=== PATIENT | male | born 1975 | race Caucasian/White ===

== ENCOUNTER 2024-06-25 21:12 | Inpatient (IN) | payer OTHER, SELFPAY ==
[2024-06-25 17:44] VITALS: BP 138/105
[2024-06-25] MEDS: DILAUDID 1 MG IV ×3 (17:48→23:58)
[2024-06-25] MEDS: NSS 500 IV ×2 (17:49→21:07)
[2024-06-25] MEDS: ZOFRAN 4 MG IV (17:52)
[2024-06-25 18:00] VITALS: BP 126/107
[2024-06-25 18:02] LABS: % Basophils 0.5 % (0-2); % Eosinophils 1.5 % (0-6); % Immature Granulocytes 0.4 % (0-0.5); % Lymphocytes 22.7 % (20.5-51.1); % Monocytes 6.3 % (1.7-9.3); % Neutrophils 68.6 % (42.2-75.2); Absolute Basophils 0.1 10^3/uL (0-0.2); Absolute Eosinophils 0.2 10^3/uL (0-0.7); Absolute Immature Granulocytes 0.1 10^3/uL (0-0.05); Absolute Lymphocytes 2.8 10^3/uL (1.2-3.4); Absolute Monocytes 0.8 10^3/uL (0.1-0.6); Absolute Neutrophils 8.5 10^3/uL (1.4-6.5); Hematocrit 43.4 % (39.0-52.0); Hemoglobin 15.5 g/dL (13.0-18.0); Mean Corp Hgb Conc. 35.7 g/dL (33.0-37.0); Mean Corpuscular Hgb 31.6 pg (27.0-31.0); Mean Corpuscular Volume 88.4 fL (80.0-94.0); Mean Platelet Volume 9.6 fL (7.4-10.4); Nucleated Red Blood Cells % 0 % (-); Platelet Count 247 10^3/uL (130-400); Red Blood Cell Count 4.91 10^6/uL (4.70-6.10); Red Cell Dist. Width 12.7 % (11.5-14.5); White Blood Cell Count 12.4 10^3/uL (4.8-10.8)
[2024-06-25 18:14] LABS: Lactic Acid 3.4 mmol/L (0.7-2.0)
[2024-06-25 18:15] LABS: ALT (SGPT) 26 U/L (0-50); AST (SGOT) 27 U/L (17-59); Albumin 4.6 g/dl (3.5-5.0); Alkaline Phosphatase 67 U/L (38-126); Blood Urea Nitrogen 17 mg/dl (9-20); Calcium 10.3 mg/dl (8.4-10.2); Carbon Dioxide 24 mmol/L (22-30); Chloride 103 mmol/L (98-107); Glucose 111 mg/dl (70-99); Lipase 120 U/L (23-300); Potassium 3.8 mmol/L (3.5-5.1); Sodium 138 mmol/L (135-145); Total Bilirubin 0.6 mg/dl (0.2-1.3); Total Protein 6.9 g/dl (6.3-8.2); eGFR > 60.00
--- NOTE | 2024-06-25 18:54 | ED.GENMED ---
History of Present Illness
General
Chief Complaint: Abdominal Pain
Source: patient
Exam Limitations: none
Time Seen by Provider: 06/25/24 17:44
Nursing documentation reviewed up to this point in time: agreed with
History of Present Illness
History of Present Illness:
49-year-old male with past medical history of hepatitis, chronic back pain who presents to the emergency room with his for evaluation of abdominal pain. Patient reports onset of symptoms this morning and they have been constant since that
time. He reports pain located in the periumbilical region. Describes a sharp pain. No relieving or triggering factors noted. He reports associated nausea and multiple episodes of vomiting. He also had an episode of diarrhea today. He says that
he has had kidney stones in the past but says this pain feels more intense. He denies any associated fever. Denies any urinary symptoms. He denies any other complaints. He does have prior history of appendectomy.
Past History
Past History
ED Past Medical History: None
ED Past Surgical History: Appendectomy and Orthopedic (Discectomy)
Social History
Tobacco: Smoker
Alcohol: None
Drug: None
Personal:
Living: with family
Employment: Employed
Family History
Family History: Other (Noncontributory)
Review of Systems
Review of Systems
All Other Systems: ROS reviewed and negative except as documented in HPI and ROS
Constitutional: Denies fever
Respiratory: Denies trouble breathing
Cardiac: Denies chest pain
ABD/GI: Reports abdominal pain, nausea, vomiting and diarrhea
: Denies dysuria, frequency or flank pain
Musculoskeletal: Denies neck pain or back pain
Neurological: Denies dizzy or headache
Phy Exam
Physical Exam
Physical Exam:
General: Awake, alert, oriented x3; appears uncomfortable and in significant pain, difficulty finding a position of comfort in the stretcher
Head: Normocephalic, atraumatic
Eyes: Conjunctiva normal, sclera anicteric
Throat: Airway intact, handling secretions
Neck: Trachea midline, supple without meningismus
Lungs: Clear to auscultation bilaterally, no wheezing, rales, rhonchi
Heart: Regular rate and rhythm, no murmurs, gallops, or rubs
Abd: Soft, non distended, diffuse tenderness to palpation maximal in the epigastric region with voluntary guarding
Neuro: No gross deficits
Skin: no rash
Extremities: No edema in extremities, warm and well-perfused
Scores
Heart Failure Risk
Heart Failure Risk Score: Not Applicable
Heart Score for Chest Pain Patients
STEMI patient?: Not applicable
Withdrawal Assessment of Alcohol
Withdrawal Assessment Completed?: Not applicable
Course
Orders/Labs/Results
Orders:
Orders
06/25/24 17:44
HYDROmorphone [Dilaudid] 1 mg IV NOW STA
06/25/24 17:45
EKG [Electrocardiogram (*1)] Urgent
Reason for Study: Abdominal Pain
CT Abd/pelvis W Iv Cont Urgent
Comment:
Reason For Exam: upper abd pain
EKG- Treatment ONCE
Urinalysis Reflex To Culture Urgent
0.9% Sodium Chloride 500 ml [Nss] 500 ml IV BOLUS
06/25/24 17:51
Ondansetron Injectable [Zofran] 4 mg .ROUTE .STK-MED ONE
06/25/24 17:52
Ondansetron Injectable [Zofran] 4 mg IV NOW STA
06/25/24 17:53
Complete Blood Count/With Diff Urgent
Comprehensive Metabolic Panel Urgent
Lactate Level [Lactic Acid] Urgent
Lipase Urgent
06/25/24 18:41
HYDROmorphone [Dilaudid] 1 mg .ROUTE .STK-MED ONE
06/25/24 18:42
HYDROmorphone [Dilaudid] 1 mg IV NOW STA
06/25/24 19:41
HYDROmorphone [Dilaudid] 0.5 mg IV NOW STA
06/25/24 19:46
Electrocardiogram (*1) Urgent
Reason for Study: Other
Other Reason for Exam: bradycardia
EKG- Treatment ONCE
06/25/24 19:51
Troponin I Urgent
06/25/24 20:03
Lactate Level [Lactic Acid] Urgent
Abnormal Lab Results
06/25/24
17:53
WBC 12.4 H 10^3/uL
(4.8-10.8)
MCH 31.6 H pg
(27.0-31.0)
Abs Immat Gran (auto) 0.1 H 10^3/uL
(0-0.05)
Absolute Neuts (auto) 8.5 H 10^3/uL
(1.4-6.5)
Absolute Monos (auto) 0.8 H 10^3/uL
(0.1-0.6)
Glucose 111 H mg/dl
(70-99)
Lactic Acid 3.4 H mmol/L
(0.7-2.0)
Calcium 10.3 H mg/dl
(8.4-10.2)
06/25/24 17:53
06/25/24 17:53
Vital Signs
Initial and Last Documented VS:
Initial Vital Signs
Pulse Resp Pulse Ox
60 40 100
06/25/24 17:39 06/25/24 17:39 06/25/24 17:39
Last Documented Vital Signs
Temp Pulse Resp BP Pulse Ox
36.1 C L 39 23 135/82 100
06/25/24 18:01 06/25/24 19:45 06/25/24 19:45 06/25/24 19:40 06/25/24 19:45
MDM/Problems Addressed
Differential Diagnosis Includes:
Gastritis, peptic ulcer, pancreatitis, cholecystitis/cholelithiasis, nephrolithiasis, bowel obstruction, ischemic colitis, perforation
MDM/Problems Addressed:
49-year-old male presents for evaluation of severe abdominal pain associate with nausea and vomiting as well as an episode of diarrhea. Hypertensive and hyperventilating on arrival although respiratory rate normalized with pain control. IV placed
and patient was given antiemetic and pain medication. Labs sent off including a CBC and CMP, lipase. Will send a urinalysis. EKG shows no STEMI. Will send for a CT abdomen pelvis. Will provide IV fluids. Monitor very closely, additional pain
control as needed, reassess after the above.
Patient has had some bradycardia suspect vagal in the setting of intense pain. He is required multiple rounds of pain medications to control his symptoms. EKG shows sinus bradycardia which seems to correlate with times of intense pain.
Labs reviewed: CBC shows a leukocytosis to 12.4. CMP shows acceptable creatinine of 1.1, no clinically significant abnormalities. His lactate was elevated at 3.4�fluids in progress will repeat. Awaiting CT.
CT shows obstructive nephrolithiasis at the right UVJ 5 mm stone. Patient has had intense pain requiring multiple rounds of parenteral pain control to adequately control symptoms. Will need to be admitted for pain control. I did discuss the case
with urology for consultation. Although he does not have a fever or any UTI symptoms he does have a slight leukocytosis and with the initially elevated lactate will cover with antibiotics. Case discussed with hospitalist for admission.
Acute Exacerbation and/or Progression of Chronic Illness:
Acutely hypertensive
Acute Exacerbation and/or Progression of Chronic Illness: HTN
*Radiology
Radiology exam reviewed: radiology read reviewed
*Pulse Oximetry
Patient hypoxic: no
*EKG
Interpreted by ED Provider?: Yes
Heart Rate: 48
Rate: bradycardiac
Rhythm: sinus and PVC's
Walker: normal axis
Interval: normal interval
QRS Pattern: normal QRS
Ischemia: no ischemia
*Critical Care Note
Total Time (30-74mins, 75-104mins- exclusive of procedures): Not Applicable
Data Reviewed
Source: patient and spouse
Patient Management
Discussion with other providers: Hospitalist (Discussed with hospitalist) and Invasive Physician (Discussed with urology)
Escalation/DeEscalation of care consider admission/obs:
Admission indicated
ED Attending Note
-
Portions of this chart may have been created with voice recognition software.� Occasional wrong word or��sound alike� substitutions may have occurred due to the inherent limitations of voice recognition software.
Discharge Plan
Departure
Prescriptions:
No Action
trazodone 50 mg tablet
50 mg PO HS
dextroamphetamine-amphetamine 10 mg tablet
10 mg PO BID@0800,1400
Patient Comments:
06/25/2024: last filled 06/09/24, 60 tabs for 30 days from [facility]
Referrals:
Lachelle Stover, [Family Provider] -
Interventions
Interventions:
MR-Rqopew-Kzrklrguoz Assessment Last Done: 06/25/24 18:07
Discharge Date and Time
Print Language: URDU
[2024-06-25 19:40] VITALS: BP 135/82
[2024-06-25] MEDS: DILAUDID 0.5 MG IV ×2 (19:47→21:45)
[2024-06-25] MEDS: TORADOL 15 MG IV (20:04)
[2024-06-25 20:23] LABS: Troponin I < 0.012 ng/ml
--- NOTE | 2024-06-25 20:45 | HPS.HSE ---
Addendum entered and electronically signed by Shaheen Wells DO 06/25/24 23:48:
HR has improved gradually and is now in normal / acceptable range.
Continue treatment of primary issue and monitor on tele.
Will defer Cardiology evaluation unless recurrent / significant bradycardia.
Original Note:
Family Physician
-
Family Physician: Lachelle Stover
Chief Complaint
-
Abd Pain
History of Present Illness
Patient is a 49y M with PMH significant for DDD and ADHD who presents to ED complaining of abdominal pain. Patient states that he felt well yesterday. He woke this AM around 5 with 'stomach ache' that has progressed throughout the day. Patient
ultimately left work early due to his pain. He reports pain below the umbilicus that has steadily increased in severity throughout the day. He notes that the pain 'comes in waves'. Patient reports associated N/V x multiple episode of non-bloody,
bilious emesis. He denies any fevers / chills. He has some radiation of pain to the middle of the low back - but no noted flank pain.
Patient denies any noted blood in the urine or change in urine color.
With worsening symptoms, patient presented to the ED for further evaluation.
He states that he has had kidney stones in the past - and notes that he has had similar location of pain, etc - however, he has never had pain this severe.
He is on Adderall which he started about 2 months ago.
No other new medications.
Medical History
Past Medical History
Past Medical History: Reports Other
Additional Past Medical History:
Nephrolithiasis
Lumbar DDD
ADHD
Anxiety / Depression
Hep C s/p Treatment
Past Surgical History: Reports Other
Additional Past Surgical History:
Lumbar Discectomy x 2
Right Foot ORIF with Hardware
Appendectomy
Social History
Tobacco: Smoker (Current every day smoker. 1 11/27 ppd.)
Alcohol: Occasional
Drug: Marijuana (Occasional THC. No other drug use.)
Family History
Family History: Other (Mother / Father: DM)
Allergies / Home Medications
Allergies reflects when Allergies were last updated in [facility].
Home Medications with original date entered in [facility]
Allergy/Medication List:
Allergies
Allergy/AdvReac Type Severity Reaction Status Date / Time
bupropion HCl Allergy Hives Verified 06/25/24 17:39
[From Wellbutrin]
Home Medications
dextroamphetamine-amphetamine 10 mg tablet 10 mg PO BID@0800,1400 06/25/24
trazodone 50 mg tablet 50 mg PO HS 06/25/24
Review of Systems
-
History Source: Patient
A 12 point ROS was completed and negative except as noted: Yes
Constitutional: Reports Fatigue; Denies Fever or Chills
EENT: Denies Sore Throat
Respiratory: Denies Cough or Trouble Breathing
Cardiac: Denies Chest Pain or Palpitations
Abdomen/GI: Reports Abdominal Pain, Nausea, Vomiting and Constipated (No BM in past few days.); Denies Diarrhea, Bloody Stools or Black Stools
: Denies Dysuria, Frequency, Flank Pain or Bleeding
Musculoskeletal: Denies Joint Pain or Edema
Neurological: Denies Dizzy or Headache
Psych: Denies Depression or Anxiety
Physical Exam
Vital Signs
Vital Signs
Temp Pulse Resp BP Pulse Ox
96.9 F L 46 17 135/82 100
06/25/24 18:01 06/25/24 20:15 06/25/24 20:15 06/25/24 19:40 06/25/24 20:15
Physical Exam
General: Other (49y M in mild distress due to pain.)
HEENT: Other (Dry MM. Neck supple.)
Respiratory: Clear; No Wheezes, Rales or Rhonchi
Cardiac: S1/S2 and Bradycardia; No Murmur
GI: Soft, Non Distended, Normal Bowel Sounds and Other (Mild suprapubic tenderness. No rebound / guarding.)
Musculoskeletal: No Clubbing, No Cyanosis and No Edema
Neuro: AO x 3
Laboratory Results
-
06/25/24 17:53
06/25/24 17:53
Laboratory Results
Lactic Acid 2.0 mmol/L (0.7-2.0) 06/25/24 20:06
Total Bilirubin 0.6 mg/dl (0.2-1.3) 06/25/24 17:53
AST 27 U/L (17-59) 06/25/24 17:53
ALT 26 U/L (0-50) 06/25/24 17:53
Alkaline Phosphatase 67 U/L (38-126) 06/25/24 17:53
Troponin I < 0.012 ng/ml 06/25/24 19:51
Lipase 120 U/L (23-300) 06/25/24 17:53
Impression/Plan
-
A/P: Patient is a 49y M with PMH significant for ADHD and prior kidney stones who presents to ED complaining of abdominal pain and N/V.
Abdominal Pain with N/V
Right Ureteral Stone with Hydronephrosis
- Admit for further evaluation and treatment.
- No other significant abnormality to explain symptoms is noted on CT imaging.
- Supportive care with IVFs, pain control, antiemetics, etc.
- Empiric abx for now pending urinalysis / stone removal.
- Urology consulted - will likely require cysto / stent.
- Begin Flomax.
- Follow for clinical improvement.
Sinus Bradycardia
- Patient with HR in the 30-50 range - despite significant pain reported in the ED.
- Denies any prior h/o bradycardia / conduction system disease / etc.
- Only new med is Adderall.
- ? Vagal response to pain, but would not expect such sustained effect.
- Monitor on telemetry overnight.
- Patient also mildly hypothermic. Added TFTs to ED labs.
- Cardiology evaluation in the AM for additional recommendations.
- Continue treatment of primary issue as noted above and follow for changes in HR.
Anxiety / Depression
ADHD
- Hold outpatient medications acutely.
History of Hep C
- s/p treatment many years ago. In remission per patient.
Chronic Low Back Pain
Lumbar DDD
- Stable. Some back pain at present likely related to above.
- Continue pain control as noted.
DVT Prophylaxis: SCDs
Code Status: Full
[2024-06-25 21:00] VITALS: BP 155/94
[2024-06-25] MEDS: ROCEPHIN 1000 MG IV (21:04)
[2024-06-25] MEDS: FLOMAX 0.4 MG PO (21:04)
[2024-06-25 21:34] LABS: Magnesium 1.9 mg/dl (1.6-2.3)
[2024-06-25 22:00] VITALS: BP 140/92
[2024-06-25 22:14] LABS: TSH Reflex To Free T4 3.59 uIU/ml (0.47-4.68)
[2024-06-25] MEDS: LR 1000 IV (22:25)
[2024-06-25 23:17] VITALS: BP 141/95
--- NOTE | 2024-06-25 23:30 | PTCARENOTE ---
rec`d pt at 2330 from ED. pt AAOx3. pt able to ambulate from ED bed to ICU bed, however hunched over in pain. pt complaining of lower abdomen pain. prns given. SB to SR on monitor. +pulses. no edema. rt ac 20. left hand 22 flushed and patent. RA POX
99%. urinal. call dove in reach, safe environment maintained. and daughter at bedside.
[2024-06-25] MEDS: COMPAZINE 5 MG IV (23:40)
[2024-06-26] VITALS (23 sets, daily range): BP systolic 113–158; BP diastolic 75–107
[2024-06-26] MEDS: DILAUDID 0.5 MG IV ×5 (02:50→19:39)
[2024-06-26] MEDS: TYLENOL 650 MG PO (04:12)
[2024-06-26 04:50] LABS: Hematocrit 39.9 % (39.0-52.0); Mean Corp Hgb Conc. 35.1 g/dL (33.0-37.0); Mean Corpuscular Hgb 31.7 pg (27.0-31.0); Mean Corpuscular Volume 90.5 fL (80.0-94.0); Mean Platelet Volume 9.6 fL (7.4-10.4); Platelet Count 183 10^3/uL (130-400); Red Blood Cell Count 4.41 10^6/uL (4.70-6.10); Red Cell Dist. Width 12.7 % (11.5-14.5)
--- NOTE | 2024-06-26 04:57 | PTCARENOTE ---
pt seems to be going in and out of AFIB or [facility] wang aware. ordered an ekg.
[2024-06-26 05:18] LABS: Blood Urea Nitrogen 19 mg/dl (9-20); Calcium 8.9 mg/dl (8.4-10.2); Carbon Dioxide 26 mmol/L (22-30); Chloride 103 mmol/L (98-107); Glucose 94 mg/dl (70-99); Potassium 4.2 mmol/L (3.5-5.1); Sodium 136 mmol/L (135-145); eGFR > 60.00
--- NOTE | 2024-06-26 05:34 | PTCARENOTE ---
ekg done after rhythm change. HEARING CONSULTANT betsey wang aware. notified via tiger text. ekg shows AFIB.
[2024-06-26] MEDS: FLOMAX 0.4 MG PO (07:27)
[2024-06-26] MEDS: LR 1000 IV ×3 (07:28→22:42)
--- NOTE | 2024-06-26 08:02 | PTCARENOTE ---
Patient received from change of shift RN, Patient resting in bed states ABD continues 05/05 after being given Dilaudid this am by prev. shift. Dr Zendejas present in room, Patient to have an echo this am- patient in afib. Questionable Stone removal and
possible cardioversion to convert back to NSR. Patient VS within normal limits.
--- NOTE | 2024-06-26 08:11 | CON.CAR ---
Consultation
Consultation Request
Date/Time Consultation Requested: 06/26/24, 7am
Date/Time Consultation Performed: 06/26/24, 730am
Requesting Provider: Cruz
Performing Provider: Aashish
Reason for Consultation: Atrial fibrillation
Medical History
-
Chief Complaint: abdominal pain
History of Present Illness:
49 yo male with PMH of ADHD, tobacco abuse presented to ED with abdominal pain. This was associated with nausea, vomiting, dizziness, syncope. HR at the time was in 40s, but then improved. Was found to have obstructing right ureteral stone, and
admitted to hospital. Bradycardia improved, but then he developed new A fib around 1230am. He does not feel palps, CP, SOB.
Prior to this, he was very active, can climb a flight of stairs without CP/SOB.
Past Medical History
Past Medical History: Other (ADHD)
Past Surgical History: Appendectomy
Social History
Tobacco: Smoker
Family History
Family History: Early CAD (none)
Allergies / Home Medications
Allergy/AdvReac Type Severity Reaction Status Date / Time
bupropion HCl Allergy Hives Verified 06/25/24 17:39
[From Wellbutrin]
�Medication �Instructions �Recorded �Confirmed �Type
dextroamphetamine-amphetamine 10 10 mg PO BID@0800,1400 06/25/24 06/25/24 History
mg tablet
trazodone 50 mg tablet 50 mg PO HS 06/25/24 06/25/24 History
Review of Systems
-
History Source: Patient
Cardiac: Syncope
Abdomen/GI: Abdominal Pain, Nausea and Vomiting
Neurological: Dizzy
Physical Exam
Vital Signs
Temp Pulse Resp BP Pulse Ox
97.7 F 95 14 118/79 97
06/26/24 07:30 06/26/24 08:00 06/26/24 08:00 06/26/24 08:00 06/26/24 08:00
Lab Results
06/26/24 04:08
06/26/24 04:08
Troponin I < 0.012 ng/ml 06/25/24 19:51
Physical Exam
General: Well Developed and Well Nourished
HEENT: Normocephalic and Anicteric
Respiratory: Clear and Non Labored Respirations
Cardiac: S1/S2 (normal), Irregular Rhythm, Murmur (none), Peripheral Edema (none) and JVD (none)
GI: Tender
Musculoskeletal: No Clubbing, No Cyanosis and No Edema
Skin: Warm and Dry
Neuro: AO x 3
Psych: Calm
Impression / Plan
-
49 yo male with PMH of ADHD, tobacco abuse presented to ED with abdominal pain. This was associated with nausea, vomiting, dizziness, syncope. HR at the time was in 40s, but then improved. Was found to have obstructing right ureteral stone, and
admitted to hospital. Bradycardia improved, but then he developed new A fib around 1230am.
# Atrial fibrillation, new onset
-no sxs
-prior to A fib, he was sinus everette to 40s-50s: may have been vagal response due to pain from stone; but A fib rate is also intrinsically controlled without meds
-will remain off of rate control meds
-CHADS2-VASC = 0. If remains in A fib, will start eliquis in case he needs DCCV as outpatient after recovery from hospitalization (and would need 4 weeks eliquis post DCCV)
-echo today
# Obstructing right ureteral stone
-urology has been consulted
-he is stable from cardiac perspective for any urologic surgeries or procedures
-Abx and flomax per primary team
Data Reviewed
-
EKG: Tracing Personally Visualized and interpreted (Initial sinus everette; then atrial fibrillation HR 89)
Radiology: Report Reviewed by me (CT with right obstructing ureteral stone)
Labs: Labs Reviewed by me
[2024-06-26 08:49] LABS: Urine Albumin Negative (Neg - Trace); Urine Bilirubin Negative (Negative); Urine Character Clear (Clear); Urine Color Yellow; Urine Glucose Negative (Negative); Urine Ketone Negative (Negative); Urine Leukocyte Negative (Negative); Urine Nitrite Negative (Negative); Urine Occult Blood Negative (Negative); Urine Specific Gravity 1.015 (<1.030); Urine Urobilinogen Negative (Neg - 1+)
[2024-06-26 09:27] LABS: Amphetamines Positive (Negative); Barbiturates Negative (Negative); Benzodiazepines Negative (Negative); Buprenorphine Negative (Negative); Cocaine Negative (Negative); Marijuana Positive (Negative); Methadone Negative (Negative); Methamphetamines Negative (Negative); Opiates Positive (Negative); Phencyclidine Negative (Negative); Tricyclic Antidepressants Negative (Negative)
--- NOTE | 2024-06-26 09:28 | W.PN.URO.CBU ---
Today's Communication / Plan
-
clear liqus will reneder npo tonight but call rology if fevr will rasses in am for possible op room but pt has passable stone
Assessment / Plan
-
5 mm passable stone but severe pain complcated by arrythmia will hold off eletive procedure and hold liqus unless fever intervenes for now clear liquids but npo post hs will obtain echo and fluid challnedge to ry and pass stone Jordi do
tonoght if fevr otherwise reasess in am pt onschedule fortomorrow but can even delat=y to sat if stable i attmpt to pass the stone
Diagnosis
-
Date of Service: June 26, 2024
-
Patient Diagnosis:5 mm distal stone rt ureter painful no fevr chills or aditya Recent onset a fib and getting eval ie echo today
Post Op Day:
Subjective
-
7/10 colic pain nausea no fevr
Objective
-
Vital Signs
Temp Pulse Resp BP Pulse Ox
97.7 F 95 14 118/79 97
06/26/24 07:30 06/26/24 08:00 06/26/24 08:00 06/26/24 08:00 06/26/24 08:00
Intake and Output
06/25/24 06/26/24 06/27/24
06:59 06:59 06:59
Intake Total 750 / 750 300 / 300
Output Total 400 / 650 250 / 250
Balance 350 / 100 50 / 50
Intake:
Oral fluids 50 / 50
IV fluids (Total) 750 / 750
Lr 1,000 ml @ 125 mls/hr IV . 750 / 750
Q8H CELIO Rx#:[id number]
IV piggybacks 250 / 250
Output:
Urine, Voided 400 / 650 250 / 250
Laboratory Results
08/01/24 04:08
06/26/24 04:08
Review of Systems
-
Abdomen/GI: Nausea and Vomiting
: Flank Pain
Physical Exam
-
General - well developed, well nourished, no acute distress
Chest - clear bilaterally
Abdomen - soft, non-tender, positive bowel sounds, no CVAT, no incisional pain or distention
Genitalia - normal
Rectal - normal
Skin - warm & dry with no rash
Neuro - AOx3, no motor deficits
Extremities - no clubbing, no cyanosis, no edema
Incision - clean, dry
Dressing - clean, dry, intact
Care Review
Data Reviewed
Discussed with: Cardiology, Hospitalist and Nursing
CT Scan: Image Pers Reviewed
[2024-06-26 11:11] LABS: Fentanyl, Urine Negative (Negative)
--- NOTE | 2024-06-26 11:22 | W.PN.HOSP.TC ---
Today's Communication/Plan
-
Continue Flomax
N.p.o. after midline in case needs urology procedure tomorrow
Continue ceftriaxone
Assessment / Plan
Assessment / Plan
49 y/o male with abdominal pain. He also had multiple nonbloody bilious emesis. He also had blood in the urine history of kidney stones in the past
CVS: S1-S2 irregular
Chest: CTA B/L
Abdomen: Soft, NT / Bowel sounds present
Extremities: No edema, normal pulses
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
# Right ureteral stone with hydronephrosis
IV fluids, pain control
Continue antibiotics
Urology consulted for stent/cysto
Trying to see if this will pass waiting
Continue Flomax
Continue ceftriaxone
# Lactic acidosis resolved
# Sinus bradycardia with new onset A-fib
Cardiology consulted and following
Eventually will need Eliquis after urology procedure
No rate controlling agents now.
# Anxiety and depression and ADHD
Hold trazodone and Adderall
# History hepatitis C treated years ago
# Chronic low back pain and lumbar DDD
# DVT prophylaxis
# FULL CODE
Discussed with cardiology
Discussed with urology
Anticipated Discharge: 24 - 48 hours
Subjective/Interval History
-
Date of Service: June 26, 2024
Objective Data
-
Labs:
Laboratory Results
06/26/24
04:08
WBC 11.0 H
Hgb 14.0
Hct 39.9
Plt Count 183 D
Sodium 136
Potassium 4.2
Chloride 103
Carbon Dioxide 26
BUN 19
Creatinine 1.2
Glucose 94
Calcium 8.9
Vital Signs:
Vital Signs
Temp Pulse Resp BP Pulse Ox
97.7 F 95 14 118/79 97
08/01/24 07:30 06/26/24 08:00 06/26/24 08:00 06/26/24 08:00 06/26/24 08:00
I&O
06/25/24 06/26/24 06/27/24
06:59 06:59 06:59
Intake Total 750 / 750 300 / 300
Output Total 400 / 650 250 / 250
Balance 350 / 100 50 / 50
--- NOTE | 2024-06-26 14:45 | CM ---
Patient seen bedside, initial assessment completed. Patient resides with in ranch style home, no steps to enter. Patient is employed insurance salesman, denies use of DME, denies VN or SNF history. Patient PCP Lachelle Stover, pharmacy [facility] in
[place]. Patient confirms prescription coverage through insurance. Patient denies any food, housing/utility, transportation insecurities at home. CM reviewed with nurse, patient N.P.O. after midnight in case needs to go to OR. CM will continue to
follow for all discharge planning needs.
Plan; home no needs, watch for needs if pt goes to OR.
--- NOTE | 2024-06-26 19:03 | PTCARENOTE ---
Assumed care of pt. approx 1900.
Remains on LR 125 mL/hr. Persistent pain despite Dilaudid dosing.
No neurological deficits noted.
AFIB no RVR noted, normotensive, normothermic.
Passing urine w/o issue, instructed patient on use of strainer.
NPO after midnight, Provided update at length to patient and on plan of care.
[2024-06-26] MEDS: ROCEPHIN 1000 MG IV (19:40)
[2024-06-26] MEDS: STERILE WATER FOR INJECTION 10 ML IV (19:40)
[2024-06-26] MEDS: FLUSH (NSS) 1 FLUSH IV (19:42)
[2024-06-26] MEDS: TORADOL 15 MG IV (22:42)
[2024-06-27] VITALS (31 sets, daily range): BP systolic 114–155; BP diastolic 76–110; BMI 19.1
[2024-06-27] MEDS: DILAUDID 0.5 MG IV ×5 (00:54→19:55)
--- NOTE | 2024-06-27 00:56 | PTCARENOTE ---
Assessment unchanged from prior.
Pt. now NPO.
Pain still difficult to manage despite PRNs.
[2024-06-27 04:31] LABS: Hematocrit 36.3 % (39.0-52.0); Mean Corp Hgb Conc. 35.8 g/dL (33.0-37.0); Mean Corpuscular Hgb 31.2 pg (27.0-31.0); Mean Corpuscular Volume 87.1 fL (80.0-94.0); Mean Platelet Volume 9.3 fL (7.4-10.4); Platelet Count 175 10^3/uL (130-400); Red Blood Cell Count 4.17 10^6/uL (4.70-6.10); Red Cell Dist. Width 12.6 % (11.5-14.5)
[2024-06-27 04:55] LABS: Blood Urea Nitrogen 13 mg/dl (9-20); Calcium 8.6 mg/dl (8.4-10.2); Carbon Dioxide 25 mmol/L (22-30); Chloride 104 mmol/L (98-107); Estimated Creatinine Clearance 64 ml/min; Glucose 97 mg/dl (70-99); Magnesium 1.5 mg/dl (1.6-2.3); Potassium 4.2 mmol/L (3.5-5.1); Sodium 133 mmol/L (135-145); eGFR > 60.00
[2024-06-27] MEDS: LR 1000 IV ×2 (05:33→14:44)
[2024-06-27] MEDS: COMPAZINE 5 MG IV (05:42)
[2024-06-27] MEDS: TORADOL 15 MG IV ×3 (07:22→21:33)
[2024-06-27] MEDS: FLOMAX 0.4 MG PO (07:23)
--- NOTE | 2024-06-27 07:38 | PTCARENOTE ---
received in AM, AAOx3, c/o of right lower back and abd pain 06/04, Toradol IV admin. scheduled for OR with Dr. Gardner this AM. NPO maintained. afib on the monitor HR 100-140s with stress. MD aware. currently in bed. all needs anticipated.
--- NOTE | 2024-06-27 07:43 | W.PN.URO.CBU ---
Today's Communication / Plan
-
for op room please oneida vu npo
Assessment / Plan
-
5 mm passable stone but severe pain discussed options pt aware of risks rewards of surgery and alt of observation Requests intervention consented for today as hemodynamically stable
Diagnosis
-
Date of Service: June 27, 2024
-
Patient Diagnosis:
Post Op Day:
Patient Diagnosis:5 mm distal stone rt ureter painful no fevr chills but ongoing severe pain
Post Op Day:
Subjective
-
sebver e pain nasea and bvomiting nofevr
Objective
-
Vital Signs
Temp Pulse Resp BP Pulse Ox
98.3 F 102 14 125/76 96
06/27/24 07:00 06/27/24 05:00 06/27/24 05:00 06/27/24 04:00 06/27/24 05:00
Intake and Output
06/26/24 06/27/24 06/28/24
06:59 06:59 06:59
Intake Total 750 / 750 2671 / 2671 125 / 125
Output Total 400 / 650 2950 / 2950 460 / 460
Balance 350 / 100 -279 / -279 -335 / -335
Intake:
Oral fluids 400 / 400
IV fluids (Total) 750 / 750 1945 125 / 125
Lr 1,000 ml @ 125 mls/hr IV . 750 / 750 1945 125 / 125
Q8H CELIO Rx#:[id number]
IV piggybacks 325 / 325
Output:
Urine, Voided 400 / 650 2950 / 2950 460 / 460
Other:
Number of immeasurable emeses? 1
Laboratory Results
06/27/24 04:23
06/27/24 04:23
Review of Systems
-
Abdomen/GI: Nausea and Vomiting
: Flank Pain
Physical Exam
-
General - well developed, well nourished, no acute distress
Chest - clear bilaterally
Abdomen - soft, non-tender, positive bowel sounds, no CVAT, no incisional pain or distention
Genitalia - normal
Rectal - normal
Skin - warm & dry with no rash
Neuro - AOx3, no motor deficits
Extremities - no clubbing, no cyanosis, no edema
Incision - clean, dry
Dressing - clean, dry, intact
Care Review
Data Reviewed
Discussed with: Nursing
CT Scan: Image Pers Reviewed
[2024-06-27] MEDS: MAGNESIUM SULFATE 50 IV (09:31)
--- NOTE | 2024-06-27 09:56 | W.PN.CD ---
Today's Communication / Plan
-
he is stable from cardiac perspective for OR today
if remains in A fib, will start eliquis when safe post op
then will have outpatient follow up for rhythm check, and eval for DCCV
Impression / Plan
-
49 yo male with PMH of ADHD, tobacco abuse presented to ED with abdominal pain. This was associated with nausea, vomiting, dizziness, syncope. HR at the time was in 40s, but then improved. Was found to have obstructing right ureteral stone, and
admitted to hospital. Bradycardia improved, but then he developed new A fib around 1230am.
# Atrial fibrillation, new onset
-no sxs
-echo 06/26: EF 55-60%, nl RV, no sig valve disease
-prior to A fib, he was sinus everette to 40s-50s: may have been vagal response due to pain from stone; but A fib rate is also intrinsically controlled without meds
-will remain off of rate control meds
-CHADS2-VASC = 0. If remains in A fib, will start eliquis post op, as he may need DCCV as outpatient after recovery from hospitalization (and will also need 4 weeks eliquis post DCCV)
# Obstructing right ureteral stone
-urology has been consulted
-he is stable from cardiac perspective for OR today
-Abx and flomax per primary team
# Tobacco abuse
-counseled for cessation
Physical Exam
Vital Signs/Labs
Vital Signs
Temp Pulse Resp BP Pulse Ox
98.3 F 102 14 125/76 96
06/27/24 07:00 06/27/24 05:00 06/27/24 05:00 06/27/24 04:00 06/27/24 05:00
06/26/24 06/27/24 06/28/24
06:59 06:59 06:59
Actual Weight 61.9 kg 62.1 kg
06/27/24 04:23
06/27/24 04:23
Magnesium 1.5 mg/dl (1.6-2.3) L 06/27/24 04:23
LAB Results
06/25/24
19:51
Troponin I < 0.012
Physical Exam
Constitutional: No acute distress
EENT: Moist mucous membranes
Cardiovascular: Pedal edema is absent, JVD pressure is normal, Systolic murmur absent and Rhythm/rate is irregular
Respiratory: Respiratory effort normal and Lungs clear to auscul.
GI: Abdomen is tender
Neuro/Psych: AO x 3
Data Reviewed
-
Date of Service: June 27, 2024
EKG: Other (Tele: A fib, avg 90s)
Echo: Report Reviewed by me
Labs: Labs Reviewed by me
--- NOTE | 2024-06-27 10:31 | W.PN.HOSP.TC ---
Today's Communication/Plan
-
Cysto today
Assessment / Plan
Assessment / Plan
49 y/o male with abdominal pain. He also had multiple nonbloody bilious emesis. He also had blood in the urine history of kidney stones in the past.
CVS: S1-S2 irregular
Chest: CTA B/L
Abdomen: Soft, NT / Bowel sounds present
Extremities: No edema, normal pulses
HOTEL ASSISTANT MANAGER: Non focal exam
# Right ureteral stone with hydronephrosis
IV fluids, Pain control
Continue antibiotics
Urology planning for Stent/Cysto today
Continue Flomax
Continue Ceftriaxone
# Lactic acidosis resolved
# Sinus bradycardia with new onset A-fib
Cardiology feels bradycardia was secondary to vagal response
Eventually will need Eliquis after Urology procedure
No rate controlling agents now.
Heart rate is slightly faster today. Monitor
Echo 06/26/2024-EF 55 to 60%. No regional wall motion normalities. Normal RV size and function. Mild TR. Pulmonary artery pressure 30 to 35 mm hg.
# Anxiety and depression and ADHD
Hold Trazodone and Adderall
# History hepatitis C treated years ago
# Chronic low back pain and lumbar DDD
# DVT prophylaxis-SCDS
# FULL CODE
Discussed with Cardiology.
D/W Rn
Anticipated Discharge: Within 24 hours
Subjective/Interval History
-
Date of Service: June 27, 2024
Objective Data
-
Labs:
Laboratory Results
06/27/24
04:23
WBC 11.0 H
Hgb 13.0
Hct 36.3 L
Plt Count 175
Sodium 133 L
Potassium 4.2
Chloride 104
Carbon Dioxide 25
BUN 13
Creatinine 1.2
Glucose 97
Calcium 8.6
Vital Signs:
Vital Signs
Temp Pulse Resp BP Pulse Ox
98.3 F 102 14 125/76 96
06/27/24 07:00 06/27/24 05:00 06/27/24 05:00 06/27/24 04:00 06/27/24 05:00
I&O
06/26/24 06/27/24 06/28/24
06:59 06:59 06:59
Intake Total 750 / 750 2671 / 2671 125 / 125
Output Total 400 / 650 2950 / 2950 460 / 460
Balance 350 / 100 -279 / -279 -335 / -335
--- NOTE | 2024-06-27 12:10 | PTCARENOTE ---
patient completed CHG wipes, linen changed, TEDs and SCD applied. patient voided in the urinal prior transport. report to OR nurse given
--- NOTE | 2024-06-27 12:41 | CM ---
CM following re: discharge planning.
Reviewed pt's chart. Per chart review, pt to OR today for cystectomy.
Pt is independent in all areas [employer], works online content coordinator, resides with in ranch style home, no steps to enter.
D/C plan: home with anticipated no needs. Family to transport at discharge.
CM will follow with discharge plan updates as hospitalization progresses
--- NOTE | 2024-06-27 14:01 | W.IMMPOSTOP ---
Surgical Immed Post Op Note
-
Primary Surgeon: Skylarfer
Assisting Surgeon: none
Pre-op Diagnosis: R ureteral stone
Post-op Diagnosis: same
Procedure Performed: cystoscopy, R ureteroscopy, laser lithotripsy, ureteral stent
Anesthesia Type: general
Specimen / Culture: stone
Estimated Blood Loss: 2cc
Complications: none
Operative Findings: R ureteral stone removed entirely
Some distal ureteral inflammation
Difficulty advancing flexible scope past the distal ureter - given afib decided to leave renal stone alone to expedite procedure
Ureteral stent in place with string tether
[2024-06-27] MEDS: TYLENOL 650 MG PO (17:57)
--- NOTE | 2024-06-27 19:00 | PTCARENOTE ---
Vital signs from [id number] captured by this RN. Pt under care of previous shift during this time frame.
[2024-06-27] MEDS: STERILE WATER FOR INJECTION 10 ML IV (19:42)
[2024-06-27] MEDS: ROCEPHIN 1000 MG IV (19:42)
[2024-06-27] MEDS: FLUSH (NSS) 2 FLUSH IV (19:55)
--- NOTE | 2024-06-27 20:52 | PTCARENOTE ---
Report received from previous shift RN [id number]. Pt in bed, spouse visiting at bedside. Pt is AAO3, reports 8/10 lower abdominal pain. Telemetry rhythm reveals SR-ST, HR 70-80's at rest and 90-100's with activity, no edema noted, thigh high TEDs/knee
high SCDs in place. Lung sounds are clear throughout, pt denies SOB/cough, pox 97-99% on room air. +BS, abdomen soft and tender in lower quadrants, ordered regular diet, reports poor appetite, denies nausea. Assisted pt OOB to bathroom, pt voided
bloody urine and reports 'burning' with urination and reported small amount urinary 'leaking' once he was back in bed. Pt declined to have RN assess area at this time. Skin intact. R FA and L hand/wrist int's flushed and patent, capped. Call dove
within reach, safe environment maintained. Will monitor closely.
[2024-06-27] MEDS: FLUSH (NSS) 1 FLUSH IV (21:35)
[2024-06-28] VITALS (13 sets, daily range): BP systolic 132–156; BP diastolic 88–109; BMI 19.4
[2024-06-28] MEDS: FLUSH (NSS) 1 FLUSH IV ×2 (00:50→12:20)
[2024-06-28] MEDS: DILAUDID 0.5 MG IV ×2 (00:51→08:18)
[2024-06-28] MEDS: VALIUM 2 MG PO (01:16)
--- NOTE | 2024-06-28 01:18 | PTCARENOTE ---
Pt has been reporting lower abdominal pain throughout shift and since arrival to . Pain is minimally relieved by PRN pain medication. Pt stated that lower abdominal pain feels like 'cramping and spasming.' Discussed with [place] REVENUE FIELD AGENT, Sandra; LEIGHTON
placed new orders in pt chart. 1x dose of 2mg Valium PO administered to pt as ordered. Will monitor for effect.
--- NOTE | 2024-06-28 04:30 | PTCARENOTE ---
Pt slept for approx 2 hours post Valium dose. Wakened easily to verbal stimuli. Pt reports relief of bladder spasm discomfort. No other change in assessment. Will continue to monitor.
[2024-06-28 05:11] LABS: % Basophils 0.3 % (0-2); % Eosinophils 0.1 % (0-6); % Immature Granulocytes 0.4 % (0-0.5); % Lymphocytes 16.3 % (20.5-51.1); % Monocytes 7.5 % (1.7-9.3); % Neutrophils 75.4 % (42.2-75.2); Absolute Immature Granulocytes 0.1 10^3/uL (0-0.05); Absolute Lymphocytes 1.9 10^3/uL (1.2-3.4); Absolute Monocytes 0.9 10^3/uL (0.1-0.6); Absolute Neutrophils 8.9 10^3/uL (1.4-6.5); Hematocrit 36.1 % (39.0-52.0); Hemoglobin 12.9 g/dL (13.0-18.0); Mean Corp Hgb Conc. 35.7 g/dL (33.0-37.0); Mean Corpuscular Hgb 30.9 pg (27.0-31.0); Mean Corpuscular Volume 86.6 fL (80.0-94.0); Mean Platelet Volume 9.7 fL (7.4-10.4); Nucleated Red Blood Cells % 0 % (-); Platelet Count 188 10^3/uL (130-400); Red Blood Cell Count 4.17 10^6/uL (4.70-6.10); Red Cell Dist. Width 12.7 % (11.5-14.5); White Blood Cell Count 11.8 10^3/uL (4.8-10.8)
[2024-06-28 05:32] LABS: Blood Urea Nitrogen 15 mg/dl (9-20); Calcium 8.8 mg/dl (8.4-10.2); Carbon Dioxide 27 mmol/L (22-30); Chloride 102 mmol/L (98-107); Estimated Creatinine Clearance 78 ml/min; Glucose 108 mg/dl (70-99); Magnesium 1.9 mg/dl (1.6-2.3); Potassium 4.5 mmol/L (3.5-5.1); Sodium 133 mmol/L (135-145); eGFR > 60.00
[2024-06-28] MEDS: FLUSH (NSS) 2 FLUSH IV (06:20)
[2024-06-28] MEDS: TORADOL 15 MG IV ×2 (06:20→12:19)
[2024-06-28] MEDS: FLOMAX 0.4 MG PO (08:21)
--- NOTE | 2024-06-28 08:30 | PTCARENOTE ---
Rec'd pt at 0800 awake alert and oriented resting in bed. Did not want to get into a chair currently. Speech is clear. Denies dizziness or headache. Does admit to 6-7/10 Lower abd pressure/discomfort and states urinating is painful. Earlier Toradol
helped briefly but currently discomfort is present. Medicated at 0820 with Dilaudid 0.5 mg IV for pain. HAYS. Skin is pale pink wm and dry. Respirs are unlabored on RA with sats of 98%. BS are clear. Monitor SR. + pulses. DP pulses are sl weak. No
edema. Thigh High TEDS and KH SCD's in place. Denies chest pain. VS as documented. ABd is soft and non-tender with + BS. Denies nausea. Limited appetite. Pt voided prior to change of shift. Pt with Urinary stent that exits externally secured with
Tegaderm. Capped ints intact R posterior forearm and L hand. Sites wnl. Pt able to reposition himself. Mentioned about possibly going home today- will await MD orders/input. Call dove in reach. Plan of care reviewed with pt.
--- NOTE | 2024-06-28 09:00 | W.PN.CD ---
Today's Communication / Plan
-
-Patient is now back in sinus rhythm; no cardiac complaints.
-No indication for rate-controlled medications at this time (could precipitate bradycardia).
-CHADS2-VASC = 0; no indication for systemic anticoagulation.
-Follow-up with Cardiology as an outpatient; can be discharged from cardiac standpoint.
Impression / Plan
-
49 yo male with PMH of ADHD, tobacco abuse presented to ED with abdominal pain. This was associated with nausea, vomiting, dizziness, syncope. HR at the time was in 40s, but then improved. Was found to have obstructing right ureteral stone, and
admitted to hospital. Bradycardia improved, but then he developed new A fib around 1230am.
# Paroxysmal atrial fibrillation, new onset
-Patient is now back in sinus rhythm; no cardiac complaints.
-echo 06/26: EF 55-60%, nl RV, no sig valve disease
-prior to A fib, he was sinus everette to 40s-50s: may have been vagal response due to pain from stone; but A fib rate is also intrinsically controlled without meds
-No indication for rate-controlled medications at this time (could precipitate bradycardia).
-CHADS2-VASC = 0; no indication for systemic anticoagulation.
-Follow-up with Cardiology as an outpatient; can be discharged from cardiac standpoint.
# Obstructing right ureteral stone
-Stable status post procedure yesterday.
# Tobacco abuse
-Cessation recommended.
Physical Exam
Vital Signs/Labs
Vital Signs
Temp Pulse Resp BP Pulse Ox
97.9 F 84 22 132/96 97
06/28/24 07:50 06/28/24 08:00 06/28/24 08:00 06/28/24 08:00 06/28/24 08:00
06/27/24 06/28/24 06/29/24
06:59 06:59 06:59
Actual Weight 62.1 kg 63.2 kg
06/28/24 04:53
06/28/24 04:53
Magnesium 1.9 mg/dl (1.6-2.3) 06/28/24 04:53
LAB Results
06/25/24
19:51
Troponin I < 0.012
Physical Exam
Constitutional: No acute distress and Comfortable
EENT: Anicteric
Cardiovascular: Rhythm & rate is regular, Pedal edema is absent, Systolic murmur absent and S1S2 is normal
Respiratory: Respiratory effort normal and Lungs clear to auscul.
GI: Distention absent
Neuro/Psych: AO x 3
Other: Skin (Warm, dry, intact)
Data Reviewed
-
Date of Service: June 28, 2024
EKG: Tracing Personally Visualized and interpreted (Telemetry: Sinus rhythm)
Medical Tests (PFT, Pathology etc): Discussed with Physician (Primary hospitalist) and Discussed with Nurse
Labs: Labs Reviewed by me
Critical Care Time (in minutes): 36
--- NOTE | 2024-06-28 10:00 | PTCARENOTE ---
Misti Doe and Cruz in to see pt. Pt wants to go home as he is frustrated having to be in the hospital and miss an event in [facility] and a trip to [place]. Support given. Plan is for urology to possibly remove the stent and then possibly send pt
home later today. Currently resting in bed. Did get oob to use the bathroom to void. Wants to wait to see if he can go home prior to doing AM care as he would prefer to do it at home. Call dove remains within reach. Gait is steady.
--- NOTE | 2024-06-28 11:16 | W.PN.HOSP.TC ---
Today's Communication/Plan
-
Discharge after seen by urology and if okay. Stop antibiotics at discharge.
No Eliquis or rate controlling agents at discharge per discussion with cardiology.
Outpatient follow-up with urology for addressing right kidney stone.(Incidental finding)
Assessment / Plan
Assessment / Plan
49 y/o male with abdominal pain. He also had multiple nonbloody bilious emesis. He also had blood in the urine history of kidney stones in the past.
Pain better today per patient
CVS: S1-S2 irregular
Chest: CTA B/L
Abdomen: Soft, no CVA tenderness, bowel sounds present
Extremities: No edema, normal pulses
JOURNEYMAN GLAZIER: Non focal exam
# Right ureteral stone with hydronephrosis
Status post cystoscopy, right ureteroscopy, laser lithotripsy and ureteral stent placement by Dr. Hargrove 06-27-24
Stent will come out today
Stop antibiotics at discharge
# Lactic acidosis resolved
# Sinus bradycardia with new onset A-fib
Cardiology feels bradycardia was secondary to vagal response
Converted to sinus rhythm
No rate controlling agents now.
No need for anticoagulation per discussion with cardiology
Echo 06/26/2024-EF 55 to 60%. No regional wall motion normalities. Normal RV size and function. Mild TR. Pulmonary artery pressure 30 to 35 mm hg.
# Anxiety and depression and ADHD
Restart trazodone and Adderall
# History hepatitis C treated years ago
# Chronic low back pain and lumbar DDD
# DVT prophylaxis-SCDS
# FULL CODE
Discussed with Cardiology and urology
D/W Rn
Patient anxious to go home
Anticipated Discharge: Today
Subjective/Interval History
-
Date of Service: June 28, 2024
Objective Data
-
Labs:
Laboratory Results
06/28/24
04:53
WBC 11.8 H
Hgb 12.9 L
Hct 36.1 L
Plt Count 188
Sodium 133 L
Potassium 4.5
Chloride 102
Carbon Dioxide 27
BUN 15
Creatinine 1.0
Glucose 108 H
Calcium 8.8
Vital Signs:
Vital Signs
Temp Pulse Resp BP Pulse Ox
97.9 F 84 22 132/96 97
06/28/24 07:50 06/28/24 08:00 06/28/24 08:00 06/28/24 08:00 06/28/24 08:00
I&O
06/27/24 06/28/24 06/29/24
06:59 06:59 06:59
Intake Total 2671 / 2671 1175 / 1175 250 / 250
Output Total 2950 / 2950 1360 / 1360
Balance -279 / -279 -185 / -185 250 / 250
--- NOTE | 2024-06-28 11:30 | PTCARENOTE ---
Dr. Gardner in and stent removed. Plan is for possible discharge will update Dr. Arroyo.
--- NOTE | 2024-06-28 11:48 | W.PN.URO.CBU ---
Today's Communication / Plan
-
homw when ok by g=hospitalist
Assessment / Plan
-
5 mm passable stone but severe pain stone removed stented stent iut today will d/c follow up at office for remaing rt lp stone asx
Diagnosis
-
Date of Service: June 28, 2024
-
Patient Diagnosis:
Post Op Day:
Patient Diagnosis:
Post Op Day:
Patient Diagnosis:5 mm distal stone rt ureter painful no fevr chills but ongoing severe pain
Post Op Day:
Subjective
-
feels well no colic and afebrile
Objective
-
Vital Signs
Temp Pulse Resp BP Pulse Ox
98.3 F 84 22 132/96 97
06/28/24 11:37 06/28/24 08:00 06/28/24 08:00 06/28/24 08:00 06/28/24 08:00
Intake and Output
06/27/24 06/28/24 06/29/24
06:59 06:59 06:59
Intake Total 2671 / 2671 1175 / 1175 250 / 250
Output Total 2950 / 2950 1360 / 1360
Balance -279 / -279 -185 / -185 250 / 250
Intake:
Oral fluids 400 / 400 600 / 600 250 / 250
IV fluids (Total) 1945 575 / 575
Lr 1,000 ml @ 125 mls/hr IV . 1945 575 / 575
Q8H CELIO Rx#:[id number]
IV piggybacks 325 / 325
Output:
Urine, Voided 2950 / 2950 1360 / 1360
Other:
Number of approximated MODERATE 1 1
amounts of urine
Number of immeasurable emeses? 1
Laboratory Results
06/28/24 04:53
06/28/24 04:53
Review of Systems
-
: Frequency
Physical Exam
-
General - well developed, well nourished, no acute distress
Chest - clear bilaterally
Abdomen - soft, non-tender, positive bowel sounds, no CVAT, no incisional pain or distention
Genitalia - normal
Rectal - normal
Skin - warm & dry with no rash
Neuro - AOx3, no motor deficits
Extremities - no clubbing, no cyanosis, no edema
Incision - clean, dry
Dressing - clean, dry, intact
Care Review
Data Reviewed
Discussed with: Hospitalist, Nursing and Family
CT Scan: Image Pers Reviewed
--- NOTE | 2024-06-28 12:08 | W.DS.TRANS ---
Addendum entered and electronically signed by Jerilyn Arroyo MD 06/28/24 15:42:
Dictation- [id number]
Original Note:
DC Summary - X Ray Physician
-
Discharge Instructions:
Discharge Diagnosis/Procedures Obstructing kidney stone
Paroxysmal atrial fibrillation
Diet As tolerated
Activity No restrictions
Driving Restrictions As prior to admission
Instructions:
Stand-Alone Forms:
Changes to Home Medications: Yes
Discharge Medications:
DC Medications w/original date entered in [facility]
dextroamphetamine-amphetamine 10 mg tablet 10 mg PO BID@0800,1400 ADHD 06/25/24
trazodone 50 mg tablet 50 mg PO HS Sleep 06/25/24
acetaminophen 325 mg tablet 650 mg (2 x 325 mg) PO Q4HPRN PRN pain #0 tabs 06/28/24
ibuprofen 400 mg tablet 400 mg PO TID PRN pain #20 tabs 06/28/24
Home Medication Changes
new
Ibuprofen
Pending Results: Yes
Additional Pending Results:
stone analysis
--- NOTE | 2024-06-28 13:05 | PTCARENOTE ---
Pt for discharge. Prior to discharge pt showered. Capped ints removed from R posterior arm and L hand. Sites wnl. Voided yellow urine post stent removal- stated there was no pain with voiding. States earlier Toradol is easing the lower abd
discomfort 4 currently. Discharge instructions given. Pt verbalized understanding. Await ride home.
--- NOTE | 2024-06-28 13:37 | PTCARENOTE ---
Pt discharged via wheelchair to home with pts father in law. Belongings from taken with pt
--- NOTE | 2024-06-28 14:59 | W.PN.ANS.POP ---
Anesthesia Post Operative
- Anesthesia Post Op Note
Vital Signs Stable-See Nursing Note: Yes
Airway Patent: Yes
Adequate Pain Control: Yes
Change in Mental Status: No
Current Postoperative Nausea & Vomiting: No
Anesthesia Complications: No
General Anesthetic Recall: No
Unplanned Admission: No
Post Op Hydration Adequate: Yes
[2024-07-01 13:43] LABS: Stone Analysis Mass 15 mg
== END 2024-06-28 13:50 | disposition home or self-care (01) | DRG 660 ==
LOC: ICU 21:12
PROVIDERS: Urology; ADMITTING PHYSICIAN Hospitalist; ATTENDING PHYSICIAN Hospitalist; CONSULT PHYSICIAN Specialist; EMERGENCY PHYSICIAN Emergency Medicine; FAMILY PHYSICIAN Family Medicine; OTHER PHYSICIAN Internal Medicine
PROC: 0T768DZ Dilation of Right Ureter with Intraluminal Device, Via Natural or Artificial Opening Endoscopic (ICD-10-PCS; 2024-06-27)
PROC: 0TC68ZZ Extirpation of Matter from Right Ureter, Via Natural or Artificial Opening Endoscopic (ICD-10-PCS; 2024-06-27)
DX: N13.2 Hydronephrosis with renal and ureteral calculous obstruction (principal); E87.20 Acidosis, unspecified; I48.0 Paroxysmal atrial fibrillation; M51.36 Other intervertebral disc degeneration, lumbar region; F32.A Depression, unspecified; F41.9 Anxiety disorder, unspecified; F90.9 Attention-deficit hyperactivity disorder, unspecified type; R00.1 Bradycardia, unspecified; F17.210 Nicotine dependence, cigarettes, uncomplicated; G89.29 Other chronic pain; Z86.19 Personal history of other infectious and parasitic diseases
CPT/HCPCS: 74018; 74177; 76000; 80048; 80053; 80306; 80307; 81003; 82365; 83605; 83690; 83735; 84443; 84484; 85025; 85027; 93005; 93306; 96361; 96374; 96375; 96376; 99285; 99406; A4300; C1758; C1769; C1894; C2617; Q9967